=== PATIENT | female | born 1930 | race Caucasian/White ===

== ENCOUNTER → 2017-12-26 | Outpatient (CLI) | payer MEDICARE ==
[~2017-12-26] MED LIST: GADOBUTROL 10 MMOL/10 ML VIAL ONE
== END | disposition home or self-care (01) ==
LOC: CFH 12:11
PROVIDERS: ATTEND Psychiatry & Neurology Neurology
DX: I72.0 Aneurysm of carotid artery (principal); G31.89 Other specified degenerative diseases of nervous system; R90.82 White matter disease, unspecified; G93.89 Other specified disorders of brain
CPT/HCPCS: 70544; 70549; 70553; A9585